=== PATIENT | female | born 1965 | race Asian ===

== ENCOUNTER 2020-05-28 07:13 | Emergency (ER) | payer BC ==
[2020-05-28] MEDS ORDERED: NORMAL SALINE 1000 ML 1,000 ML IV ONE ×2 (07:47→11:05)
[2020-05-28] MEDS ORDERED: ONDANSETRON HCL INJ/PF 4 MG/2 ML SDV IV ONE (07:47)
[2020-05-28] MEDS ORDERED: ONDANSETRON HCL INJ/PF 4 MG/2 ML SDV ONE (07:48)
[2020-05-28 08:39] LABS: ABSOLUTE EOSINOPHILS # (AUTO) 0.1 10^3/uL (0.0-0.6); ABSOLUTE LYMPHOCYTES (AUTO) 1.2 10^3/uL (0.5-4.7); ABSOLUTE MONOCYTES (AUTO) 0.4 10^3/uL (0.1-1.4); ABSOLUTE NEUT (AUTO) 4.4 10^3/uL (1.7-8.2); BASOPHILS % (AUTO) 0.7 % (0-2); EOSINOPHILS % (AUTO) 1.8 % (0-6); HEMATOCRIT 40.4 % (36.0-47.0); HEMOGLOBIN 13.4 g/dL (12.0-15.5); LYMPHOCYTES % (AUTO) 20.2 % (13-45); MEAN CORPUSCULAR HEMOGLOBIN 31.8 pg (27.0-33.4); MEAN CORPUSCULAR HGB CONC 33.3 g/dL (32.0-36.0); MEAN CORPUSCULAR VOLUME 96 fl (80-97); MONOCYTES % (AUTO) 5.7 % (3-13); PLATELET COUNT 211 10^3/uL (150-450); RED BLOOD COUNT 4.22 10^6/uL (3.72-5.28); RED CELL DISTRIBUTION WIDTH 12.8 % (11.5-14.0); SEGMENTED NEUTROPHILS % (AUTO) 71.6 % (42-78); TOTAL CELLS COUNTED % (AUTO) 100 %; WHITE BLOOD COUNT 6.2 10^3/uL (4.0-10.5)
[2020-05-28 08:41] LABS: ALBUMIN 4.5 g/dL (3.5-5.0); ALKALINE PHOSPHATASE 116 U/L (38-126); ANION GAP 7 (5-19); ASPARTATE AMINO TRANSFERASE 29 U/L (14-36); BILIRUBIN,TOTAL 0.7 mg/dL (0.2-1.3); BLOOD UREA NITROGEN 12 mg/dL (7-20); CALCIUM 9.8 mg/dL (8.4-10.2); CARBON DIOXIDE 29 mmol/L (22-30); CHLORIDE 104 mmol/L (98-107); GLUCOSE 101 mg/dL (75-110); POTASSIUM 3.7 mmol/L (3.6-5.0); TOTAL PROTEIN 8.4 g/dL (6.3-8.2)
[2020-05-28] MEDS ORDERED: KETOROLAC TROMETHAMINE INJ/PF 30 MG/1 ML SDV IV ONE (11:05)
--- NOTE | 2020-05-28 11:11 | ER Document Report ---
ED General - General Chief Complaint: Romanian Stated Complaint: NAUSEA/VOMITING Time Seen by Provider: 05/28/20 10:47 Primary Care Provider: JIMY,NO [Primary Care Provider] - Follow up as needed - HPI Notes: Chief complaint: Nausea, diarrhea and headache HPI: 54-year-old female taking no regular medications with no known allergies awakened this morning with symptoms as stated above. Roommate with similar symptoms. Patient has had no known exposure to COVID-19 virus. She denies traveling outside the area. Works at a local fast food restaurant. Mild abdominal cramping. Headache is described as dull and diffuse. No medications taken at home. Denies fever. Denies any change and sense of taste or smell. Denies any skin rashes. No cough or respiratory symptoms. 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 HENT: Negative for sore throat. Eyes: Negative for visual changes. Cardiovascular: Negative for chest pain. Respiratory: Negative for shortness of breath. Gastrointestinal: As per HPI . Genitourinary: Negative for dysuria. Musculoskeletal: Negative for back pain. Skin: Negative for rash. Neurological: As per HPI. 10 point ROS negative except as marked above and in HPI. Physical Exam - Vital signs Vitals: Temp Pulse Resp BP Pulse Ox 97.5 F 80 16 122/70 96 05/28/20 07:28 05/28/20 07:28 05/28/20 07:28 05/28/20 07:28 05/28/20 07:28 - Notes Notes: GENERAL: Slender female of approximately stated age who appears mildly unco mfortable. SKIN: Good turgor no rashes. HEAD: Normocephalic atraumatic. EYES: PERRLA. EOMI. Conjunctivae and sclerae clear. EARS: CANALS AND TMS CLEAR. NOSE: CLEAR. MOUTH: Moist mucosa. Good dentition. No stridor or edema. No drooling. NECK: Supple. No masses or thyromegaly. No adenopathy. Carotids 2+ without bruits. No JVD. BACK: Symmetrical without tenderness. CHEST: Respirations unlabored. Breath sounds clear and symmetrical. HEART: Regular rhythm. No murmur gallop or rub. ABDOMEN: Soft nontender without masses, organomegaly or rebound. Bowel sounds hyperactive. No bruits. GENITALIA: Deferred. EXTREMITIES: No edema. No calf tenderness. Cap refill less than 1.5 seconds. Dorsalis pedis and posterior tibial pulses 3+ and symmetrical. NEUROLOGICAL: GCS 15. Alert and oriented x3. Normal gait. Fluent speech. Cranial nerves II through XII intact. Sensorimotor and cerebellar normal. Normal tone. PSYCHIATRIC: Appropriate affect. Course - Re-evaluation Re-evalutation: 05/28/20 11:11 CBC and comprehensive metabolic profile are unremarkable. Nonsurgical abdomen by exam. No nuchal rigidity. No skin rashes. Clinically the patient appears to have a viral syndrome. I suggested that we get COVID testing isolate patient at home until we know the results. I will write her 3-day work note for now. I am going to give her an additional liter of normal saline here and some IV Toradol for headache. Her GI symptoms are already improved after she received Zofran at initiation of triage. 05/28/20 11:13 Findings, clinical impression and plan of treatment have been discussed with patient/family. Understanding of current findings and recommendations has been acknowledged by them and there is agreement regarding disposition and follow-up. - Vital Signs Vital signs: Temp Pulse Resp BP Pulse Ox 97.4 F 80 16 122/70 96 05/28/20 07:42 05/28/20 07:28 05/28/20 07:28 05/28/20 07:28 05/28/20 07:28 - Laboratory Result Diagrams: 05/28/20 08:00 05/28/20 08:00 Laboratory results interpreted by me: 05/28/20 08:00 Total Protein 8.4 H Discharge - Discharge Clinical Impression: Acute viral syndrome Condition: Stable Disposition: HOME, SELF-CARE Additional Instructions: Take prescribed medications as needed. Increase oral fluids. Remain on isolation at home until you hear results of your COVID testing. Return here as needed for new or worsening symptoms. Otherwise follow-up with your primary care physician. Prescriptions: Naproxen 500 mg PO BID PRN 7 Days #14 tablet PRN Reason: Ondansetron [Zofran Odt 4 mg Tablet] 1 - 2 tab PO Q4H PRN #15 tab.rapdis PRN Reason: For Nausea/Vomiting Forms: Return to Work Referrals: LOCALMD,NO [Primary Care Provider] - Follow up as needed
[2020-05-28 11:41] LABS: APPEARANCE,URINE SLIGHTLY-CLOUDY; BILIRUBIN,URINE NEGATIVE (NEGATIVE); COLOR,URINE YELLOW; GLUCOSE, URINE NEGATIVE (NEGATIVE); KETONES,URINE NEGATIVE (NEGATIVE); LEUKOCYTE ESTERASE,URINE NEGATIVE (NEGATIVE); NITRITE,URINE NEGATIVE (NEGATIVE); PROTEIN,URINE NEGATIVE (NEGATIVE); URINE SPECIFIC GRAVITY 1.009; UROBILINOGEN,URINE NEGATIVE mg/dL (<2.0)
[2020-05-28 12:41] VITALS: BP 113/47
== END 2020-05-28 12:41 | disposition home or self-care (01) ==
LOC: ER 07:13
DX: B34.9 Viral infection, unspecified (principal); R11.2 Nausea with vomiting, unspecified; R10.9 Unspecified abdominal pain; R51 Headache; Z20.828 Contact with and (suspected) exposure to other viral communicable diseases
CPT/HCPCS: 99284; 96361; 96374; 96375; 36415; 85025; 87635; 80053; 81001; J1885; J2405; J7030; C9803